=== PATIENT | female | born 1965 | race Caucasian/White ===

== ENCOUNTER 2020-02-07 10:10 | Emergency (ER) | payer SELFPAY ==
[~2020-02-07] VITALS: Ht 152.4 cm; Wt 74.8 kg
[2020-02-07 10:14] VITALS: BP 164/92; Ht 152.4 cm; Wt 74.8 kg
== END 2020-02-07 12:06 | disposition home or self-care (01) ==
LOC: ED 10:10
DX: S52.502A Unspecified fracture of the lower end of left radius, initial encounter for closed fracture (principal); S52.612A Displaced fracture of left ulna styloid process, initial encounter for closed fracture; W17.89XA Other fall from one level to another, initial encounter; Y93.89 Activity, other specified; Y92.89 Other specified places as the place of occurrence of the external cause; Y99.8 Other external cause status
CPT/HCPCS: J1885; Q0092